=== PATIENT | female | born 1960 ===

== ENCOUNTER 2024-04-06 07:28 | Observation (INO) | payer BC ==
[2024-04-06 08:59] LABS: #Basophils 0.03 10x3/uL (0.0-0.2); #Eosinphils Less than 0.03 10x3/uL (0.0-0.7); %Basophils 0.2 % (0.0-1.0); %Lymphocytes 6.9 % (21.0-51.0); %Monocytes 2.5 % (0.0-10.0); Hematocrit 43.5 % (36.0-47.0); Hemoglobin 14.7 g/dL (12.0-16.0); Mean Corpuscular HGB CONC 33.8 g/dL (32.0-36.0); Mean Corpuscular Hemoglobin 31.1 pg (27.0-31.0); Mean Platelet Volume 9.2 fL (7.4-10.4); Platelet Count 315 10x3/uL (130-400); Red Blood Cell (RBC) Count 4.73 mill/uL (4.20-5.40)
[2024-04-06 09:29] LABS: ALT (SGPT) 14 U/L (8-55); AST (SGOT) 12 U/L (5-34); Alkaline Phosphatase 97 U/L (40-110); Anion Gap 14 mmol/L (10-20); BUN (Urea Nitrogen) 18 mg/dL (9.8-20.1); Bilirubin, Total 0.5 mg/dL (0.2-1.2); Calc. Creatinine Clearance 0 mL/min (70-130); Calcium 9.7 mg/dL (7.8-10.44); Carbon Dioxide 24 mmol/L (23-31); Chloride 105 mmol/L (98-107); Estimated GFR 78; Globulin 3.5 g/dL (2.4-3.5); Glucose 129 mg/dL (80-115); Lipase 28 U/L (8-78); Potassium 3.9 mmol/L (3.5-5.1); Protein, Total 7.5 g/dL (5.8-8.1); Sodium 139 mmol/L (136-145)
[2024-04-06] MEDS ORDERED: Ketorolac Tromethamine 30 MG (1 mL) VIAL ONE (09:51)
[2024-04-06] MEDS ORDERED: Ondansetron PF 4 MG/2 ML Vial ONE ×2 (09:52→14:52)
[2024-04-06] MEDS ORDERED: Famotidine/PF 20 mg/2ml Vial ONE (09:52)
[2024-04-06 10:27] LABS: Troponin I Less than 0.010 ng/mL (< 0.028)
[2024-04-06 11:08] LABS: Bacteria/HPF None Seen HPF (None Seen); Bilirubin Negative (Negative); CAUTI Indications for Culture Pelvic or flank pain; Clarity Clear (Clear); Glucose, Urine (Dipstick) Normal (Negative); Ketone, Urine 20 mg/dL (Negative); Leukocyte Negative Leu/uL (Negative); Nitrite Negative (Negative); Protein, Urine (Dipstick) 30 mg/dL (Neg-Trace); Specific Gravity, Urine 1.031 (1.002-1.036); Urobilinogen Normal mg/dL (Less than 2); WBC/HPF 0-3 HPF (0-3)
[2024-04-06 11:10] LABS: Blood, Urine Trace (Negative)
[2024-04-06 11:12] LABS: Urine Culture Reflex No No
[2024-04-06] MEDS ORDERED: Ipratropium/Albuterol 3 ML NEB NEB PRN (13:44)
[2024-04-06] MEDS ORDERED: Ondansetron PF 4 MG/2 ML Vial IVP PRN (13:44)
[2024-04-06] MEDS ORDERED: Morphine 2 MG/ML VIAL SLOW IVP PRN (13:44)
[2024-04-06] MEDS ORDERED: EPINEPHrine 1 MG/ML VIAL ONE (13:48)
[2024-04-06] MEDS ORDERED: Bupivacaine 0.25% HCL 30 ML VIAL ONE (13:48)
[2024-04-06] MEDS ORDERED: Lidocaine 1% PF 5 ML VIAL ONE (13:58)
[2024-04-06] MEDS ORDERED: Rocuronium Bromide 10 MG/ML (10ML VIAL) ONE (13:58)
[2024-04-06] MEDS ORDERED: PROPOFOL 20 ML ONE (13:58)
[2024-04-06] MEDS ORDERED: fentaNYL PF 100 MCG/2 ML SYRINGE ONE (13:58)
[2024-04-06] MEDS ORDERED: Midazolam HCl 2 mg/2 ml Vial ONE (13:58)
[2024-04-06] MEDS ORDERED: Sodium Chloride 0.9% 100 ML ONE (14:28)
[2024-04-06] MEDS ORDERED: cefOXitin 2 GM VIAL ONE (14:28)
[2024-04-06] MEDS ORDERED: Dexamethasone 20 MG/5 ML VIAL ONE (14:52)
[2024-04-06] MEDS ORDERED: Dexmedetomidine 200 MCG/2 ML VIAL ONE (15:14)
[2024-04-06] MEDS ORDERED: Glycopyrrolate 0.2 MG/ML 5 ML SYRINGE ONE (16:09)
[2024-04-06] MEDS ORDERED: NEOSTIGMINE 3 MG/3 ML SYR 3 MG/3 ML SYRINGE ONE (16:09)
[2024-04-06] MEDS ORDERED: HYDROcodone/Acetaminophen 5/325 mg Tablet PO PRN (16:11)
[2024-04-06] MEDS: Acetaminophen 325 MG TAB PO SCH (18:15)
[2024-04-06] MEDS: traMADol HCl 50 MG TAB PO PRN (18:16)
[2024-04-06] MEDS: traMADol HCl 50 MG TAB PO SCH (18:16)
[2024-04-06] MEDS: Sodium Chloride 0.9% 1,000 ML IV SCH (19:53)
[2024-04-06 21:05] VITALS: BMI 34.8
[2024-04-06] MEDS: Famotidine/PF 20 mg/2ml Vial SLOW IVP SCH (21:19)
[2024-04-07 05:23] LABS: #Basophils Less than 0.03 10x3/uL (0.0-0.2); #Eosinphils Less than 0.03 10x3/uL (0.0-0.7); %Basophils 0.1 % (0.0-1.0); %Lymphocytes 8.7 % (21.0-51.0); %Monocytes 2.4 % (0.0-10.0); %Neutrophils 88.4 % (42.0-75.0); Hematocrit 38.3 % (36.0-47.0); Hemoglobin 12.8 g/dL (12.0-16.0); Mean Corpuscular HGB CONC 33.4 g/dL (32.0-36.0); Mean Corpuscular Hemoglobin 30.5 pg (27.0-31.0); Mean Corpuscular Volume 91.4 fL (78.0-98.0); Mean Platelet Volume 9.9 fL (7.4-10.4); Platelet Count 265 10x3/uL (130-400); RBC Distribution Width 14.5 % (11.5-14.5); Red Blood Cell (RBC) Count 4.19 mill/uL (4.20-5.40)
[2024-04-07 05:45] LABS: ALT (SGPT) 20 U/L (8-55); AST (SGOT) 17 U/L (5-34); Alkaline Phosphatase 77 U/L (40-110); Anion Gap 14 mmol/L (10-20); BUN (Urea Nitrogen) 15 mg/dL (9.8-20.1); BUN (Urea Nitrogen) 16 mg/dL (9.8-20.1); Bilirubin, Direct 0.1 mg/dL (0.1-0.3); Bilirubin, Total 0.4 mg/dL (0.2-1.2); Calc. Creatinine Clearance 110 mL/min (70-130); Calc. Creatinine Clearance 113 mL/min (70-130); Calcium 8.3 mg/dL (7.8-10.44); Calcium 8.5 mg/dL (7.8-10.44); Carbon Dioxide 21 mmol/L (23-31); Chloride 110 mmol/L (98-107); Estimated GFR 89; Estimated GFR 92; Globulin 2.8 g/dL (2.4-3.5); Glucose 133 mg/dL (80-115); Potassium 4.1 mmol/L (3.5-5.1); Protein, Total 5.8 g/dL (5.8-8.1); Sodium 141 mmol/L (136-145)
[2024-04-07 07:54] VITALS: BP 111/69; TEMP 97.7
== END 2024-04-07 11:59 | disposition home or self-care (01) ==
LOC: ERS 07:28 → SDC 13:54 → SURG A 17:48
PROVIDERS: ADMIT Surgery; ATTEND Surgery
PROC: 0FT44ZZ Resection of Gallbladder, Percutaneous Endoscopic Approach (ICD-10-PCS; principal; 2024-04-07)
DX: K80.12 Calculus of gallbladder with acute and chronic cholecystitis without obstruction (principal); E78.5 Hyperlipidemia, unspecified; F17.210 Nicotine dependence, cigarettes, uncomplicated; Z79.899 Other long term (current) drug therapy
CPT/HCPCS: 36415; 71045; 76705; 80048; 80053; 80076; 81001; 83690; 84484; 85025; 88304; 93005; 96374; 96375; C1713; J0171; J0665; J0694; J1100; J1885; J2250; J2405; J2704; J3490; S0028